=== PATIENT | female | born 1965 | race Caucasian/White ===

== ENCOUNTER 2016-07-11 11:39 | Emergency (ER) | payer OTHER ==
[~2016-07-11] VITALS: Ht 162.6 cm; Wt 86.0 kg
[~2016-07-11 11:39] MED LIST: FERR-89 PO; SIMV-261 PO; VITAD1000 PO
[2016-07-11] MEDS ORDERED: HYDROCODONE/ACETAMINOPHEN 10-325 MG TABLET PO ONE (12:30)
[2016-07-11] MEDS ORDERED: KETOROLAC TROMETHAMINE 60 MG/2 ML VIAL IM ONE (13:30)
[2016-07-11] MEDS ORDERED: CYCLOBENZAPRINE HCL 10 MG TABLET PO ONE (13:30)
[2016-07-11 16:06] VITALS: BP 147/82
== END 2016-07-11 16:08 | disposition home or self-care (01) ==
LOC: EMS 11:40
DX: S39.012A Strain of muscle, fascia and tendon of lower back, initial encounter (principal); X50.0XXA Overexertion from strenuous movement or load, initial encounter; Y93.89 Activity, other specified; Y92.89 Other specified places as the place of occurrence of the external cause; Y99.8 Other external cause status
CPT/HCPCS: 72100; 96372; 99284; J1885

== ENCOUNTER 2018-08-15 21:30 | Emergency (ER) | payer OTHER ==
[~2018-08-15] VITALS: Ht 162.6 cm; Wt 93.6 kg
[~2018-08-15 21:30] MED LIST changes: -SIMV-261 PO; -VITAD1000 PO
[2018-08-15] MEDS ORDERED: CALC-1202 PO (21:42)
[2018-08-15] MEDS ORDERED: GABA-529 PO (21:42)
[2018-08-15] MEDS ORDERED: IBUP-1506 PO (21:42)
[2018-08-15] MEDS ORDERED: PANT40TA25 PO (21:42)
[2018-08-15] MEDS ORDERED: MAG-55 PO (21:42)
[2018-08-15] MEDS ORDERED: METF-960 PO (21:42)
[2018-08-15 21:45] LABS: GLUCOSE,POINT OF CARE 121 MG/DL (70-110)
[2018-08-15 22:21] LABS: BASOPHILS % (AUTO) 0.5 % (0.0-2.0); EOSINOPHILS % (AUTO) 3.1 % (1.0-6.0); HEMATOCRIT 36.9 % (36-46); LYMPHOCYTES # (AUTO) 1.9 K/uL (1.0-4.8); LYMPHOCYTES % (AUTO) 50.4 % (22.0-44.0); MEAN CORPUSCULAR HEMOGLOBIN 30.9 pg (26.0-34.0); MEAN CORPUSCULAR HGB CONC 35.3 G/dL (31.0-37.0); MEAN CORPUSCULAR VOLUME 88 fL (80-100); MONOCYTES # (AUTO) 0.5 K/uL (0.1-1.0); MONOCYTES % (AUTO) 14.3 % (2.0-9.0); NEUTROPHILS # (AUTO) 1.2 K/uL (1.8-7.7); NEUTROPHILS % (AUTO) 31.7 % (40.0-70.0); PLATELET COUNT (AUTO) 186 K/uL (150-450); RED BLOOD CELL COUNT(AUTO) 4.21 MIL/uL (4.00-5.20); RED CELL DISTRIBUTION WIDTH 12.7 % (11.5-14.5)
[2018-08-15 22:22] LABS: APPEARANCE,URINE CLEAR (CLEAR); BILIRUBIN,URINE NEGATIVE (NEGATIVE); GLUCOSE, URINE (UA) NEGATIVE (NEGATIVE); KETONES,URINE NEGATIVE (NEGATIVE); LEUKOCYTE ESTERASE ,URINE NEGATIVE (NEGATIVE); NITRATE,URINE NEGATIVE (NEGATIVE); OCCULT BLOOD,URINE NEGATIVE (NEGATIVE); PROTEIN,URINE NEGATIVE (NEGATIVE); UROBILINOGEN,URINE 0.2 mg/dL (<=1.0)
[2018-08-15] MEDS ORDERED: ONDANSETRON HCL 4 MG/2 ML VIAL IVP ONE (22:30)
[2018-08-15] MEDS ORDERED: PB/HYOSCY/ATR/SCOP/LIDO/MAALOX 55 ML BOTTLE PO ONE (22:30)
[2018-08-15] MEDS ORDERED: MORPHINE SULFATE 4 MG/ML SYRINGE IVP ONE (22:30)
[2018-08-15] MEDS ORDERED: SODIUM CHLORIDE 0.9% 1,000 ML IV ONE (22:30)
[2018-08-15 22:32] LABS: BACTERIA,URINE Rare /HPF (None Seen); RBC,URINE 0-2 /HPF (0-2); SQUAMOUS EPITHELIAL CELL,UR Few /LPF (None Seen)
[2018-08-15 22:36] LABS: ANION GAP 9 mmol/L (8-16); CALCIUM, TOTAL 9.5 mg/dL (8.8-10.5); CARBON DIOXIDE 26 mmol/L (22-29); CHLORIDE 103 mmol/L (98-107); CREATININE 0.89 mg/dL (0.60-1.30); GLOMERULAR FILTR. RATE CALC > 60 mL/min (>60); GLUCOSE,RANDOM 127 mg/dL (70-110); POTASSIUM 3.9 mmol/L (3.5-5.1); SODIUM SERUM 138 mmol/L (136-145); UREA NITROGEN, BLOOD 15 mg/dL (7-18)
[2018-08-15 22:41] LABS: ALANINE AMINOTRANSFERASE 35 U/L (12-78); ALKALINE PHOSPHATASE 119 U/L (46-116); ASPARTATE AMINOTRANSFERASE 20 U/L (15-37); BILIRUBIN,TOTAL 0.9 mg/dL (0.1-1.0); LIPASE 133 U/L (73-393); PROTHROMBIN TIME 10.2 SEC (9.4-11.6); TOTAL PROTEIN, SERUM 7.6 g/dL (6.4-8.2)
[2018-08-15] MEDS ORDERED: IOVERSOL 350 MG/ML 100 ML VIAL ONE (23:27)
[2018-08-15] MEDS ORDERED: SODIUM CHLORIDE 0.9% 100 ML ONE (23:28)
[2018-08-16 01:10] VITALS: BP 115/75
== END 2018-08-16 01:44 | disposition home or self-care (01) ==
LOC: EMS 21:31
DX: R10.13 Epigastric pain (principal); R10.11 Right upper quadrant pain; Z90.49 Acquired absence of other specified parts of digestive tract; Z79.84 Long term (current) use of oral hypoglycemic drugs
CPT/HCPCS: 36415; 74177; 80053; 81001; 82962; 83690; 84703; 85025; 85610; 96374; 96375; 99284; J2270; J2405; J7030; J7050; Q9967

== ENCOUNTER 2022-08-15 18:09 | Emergency (ER) | payer OTHER ==
[~2022-08-15] VITALS: Ht 165.1 cm; Wt 91.0 kg
[~2022-08-15 18:09] MED LIST changes: +CALC-1219 PO; -FERR-89 PO; +GABA-1216 PO; +IBUP-1506 PO; +MAG-55 PO; +METF-1211 PO; +PANT-31 PO
[2022-08-15] MEDS ORDERED: SEMA3TAB4 PO (18:28)
[2022-08-15] MEDS ORDERED: METF-1211 PO (18:28)
[2022-08-15] MEDS ORDERED: ASPI-1444 PO (18:28)
[2022-08-15] MEDS ORDERED: EZET10TA57 PO (18:28)
[2022-08-15] MEDS ORDERED: CHOL500013 PO (18:28)
[2022-08-15] MEDS ORDERED: ATOR40TA28 PO (18:28)
[2022-08-15] MEDS ORDERED: ERTU5TAB PO (18:28)
[2022-08-15] MEDS ORDERED: LOSA-382 PO (18:28)
[2022-08-15 18:51] LABS: BASOPHILS % (AUTO) 0.5 % (0.0-2.0); EOSINOPHILS % (AUTO) 2.4 % (1.0-6.0); HEMATOCRIT 38.2 % (36-46); HEMOGLOBIN 12.9 g/dL (12.0-16.0); LYMPHOCYTES # (AUTO) 2.3 K/uL (1.0-4.8); LYMPHOCYTES % (AUTO) 43.1 % (22.0-44.0); MEAN CORPUSCULAR HEMOGLOBIN 30.6 pg (26.0-34.0); MEAN CORPUSCULAR HGB CONC 33.8 G/dL (31.0-37.0); MEAN CORPUSCULAR VOLUME 91 fL (80-100); MONOCYTES # (AUTO) 0.4 K/uL (0.1-1.0); MONOCYTES % (AUTO) 8.3 % (2.0-9.0); NEUTROPHILS # (AUTO) 2.4 K/uL (1.8-7.7); NEUTROPHILS % (AUTO) 45.7 % (40.0-70.0); PLATELET COUNT (AUTO) 208 K/uL (150-450); RED CELL DISTRIBUTION WIDTH 13.2 % (11.5-14.5)
[2022-08-15 18:58] LABS: ANION GAP 8 mmol/L (8-16); CALCIUM, TOTAL 9.2 mg/dL (8.8-10.5); CARBON DIOXIDE 25 mmol/L (22-29); CHLORIDE 104 mmol/L (98-107); CREATININE 0.82 mg/dL (0.60-1.30); GLOMERULAR FILTR. RATE CALC > 60 mL/min (>60); GLUCOSE,RANDOM 174 mg/dL (70-110); POTASSIUM 4.4 mmol/L (3.5-5.1); SODIUM SERUM 137 mmol/L (136-145); UREA NITROGEN, BLOOD 16 mg/dL (7-18)
[2022-08-15] MEDS ORDERED: KETOROLAC TROMETHAMINE 60 MG/2 ML VIAL IM ONE (19:00)
[2022-08-15 19:04] LABS: ALANINE AMINOTRANSFERASE 24 U/L (12-78); ALBUMIN 4.1 g/dL (3.4-5.0); ALKALINE PHOSPHATASE 131 U/L (46-116); ASPARTATE AMINOTRANSFERASE 16 U/L (15-37); BILIRUBIN,TOTAL 1.1 mg/dL (0.1-1.0); TOTAL PROTEIN, SERUM 7.3 g/dL (6.4-8.2)
[2022-08-15 19:25] LABS: APPEARANCE,URINE CLEAR (CLEAR); BILIRUBIN,URINE NEGATIVE (NEGATIVE); GLUCOSE, URINE (UA) >=1000 mg/dL (NEGATIVE); KETONES,URINE NEGATIVE (NEGATIVE); LEUKOCYTE ESTERASE ,URINE NEGATIVE (NEGATIVE); NITRATE,URINE NEGATIVE (NEGATIVE); OCCULT BLOOD,URINE NEGATIVE (NEGATIVE); PH,URINE 5.5 (5.0-8.0); PROTEIN,URINE NEGATIVE (NEGATIVE); SPECIFIC GRAVITIY, URINE 1.032 (1.003-1.030); UROBILINOGEN,URINE <=1.0 mg/dL (<=1.0)
[2022-08-15 19:43] LABS: BACTERIA,URINE Few /HPF (None Seen); RBC,URINE 0-2 /HPF (0-2)
[2022-08-15 19:44] LABS: SQUAMOUS EPITHELIAL CELL,UR Few /LPF (None Seen)
[2022-08-15] MEDS ORDERED: IBUP-1492 PO (23:10)
[2022-08-15] MEDS ORDERED: CYCL-448 PO (23:10)
[2022-08-16 00:03] VITALS: BP 126/78
== END 2022-08-16 00:05 | disposition home or self-care (01) ==
LOC: EMS 18:11
DX: R10.11 Right upper quadrant pain (principal); M54.50 Low back pain, unspecified; E78.00 Pure hypercholesterolemia, unspecified; I10 Essential (primary) hypertension; Z90.49 Acquired absence of other specified parts of digestive tract; Z98.890 Other specified postprocedural states
CPT/HCPCS: 99285; 74176; 80053; 81001; 82962; 85025; 36415; 96372; J1885

== ENCOUNTER 2023-01-21 09:17 | Emergency (ER) | payer OTHER ==
[~2023-01-21] VITALS: Ht 162.6 cm; Wt 93.2 kg
[~2023-01-21 09:17] MED LIST changes: +ASPI-1444 PO; +ATOR40TA28 PO; -CALC-1219 PO; +CHOL500013 PO; +CYCL-448 PO; +ERTU5TAB PO; +EZET10TA57 PO; -GABA-1216 PO; +IBUP-1492 PO; -IBUP-1506 PO; +LOSA-382 PO; -MAG-55 PO; -PANT-31 PO; +SEMA3TAB4 PO
[2023-01-21 09:24] VITALS: BP 133/81; PULSE 84; RESP 16; TEMP 98.4
[2023-01-21] MEDS ORDERED: DIPH25TA51 PO (10:20)
== END 2023-01-21 10:30 | disposition home or self-care (01) ==
LOC: EMS 09:34
DX: L25.9 Unspecified contact dermatitis, unspecified cause (principal); E11.9 Type 2 diabetes mellitus without complications; E78.00 Pure hypercholesterolemia, unspecified; Z90.49 Acquired absence of other specified parts of digestive tract; Z98.890 Other specified postprocedural states
CPT/HCPCS: 99282; Z7502

== ENCOUNTER 2023-04-20 09:09 | Emergency (ER) | payer OTHER ==
[~2023-04-20] VITALS: Ht 165.1 cm; Wt 75.0 kg
[~2023-04-20 09:09] MED LIST changes: +DIPH25TA51 PO
[2023-04-20 09:13] VITALS: BP 157/89; PULSE 94; RESP 18; TEMP 98.3
[2023-04-20 10:30] LABS: INFLUENZA A-RTPCR,COMBO POSITIVE FOR FLU A (NEGATIVE); INFLUENZA B-RTPCR,COMBO NEGATIVE FOR FLU B (NEGATIVE); RESPIRATORY SYNCYTIAL VRS-PCR NEGATIVE (NEGATIVE); SARS COVID19 RTPCR, COMBO NEGATIVE (NEGATIVE)
== END 2023-04-20 11:35 | disposition home or self-care (01) ==
LOC: EMS 09:09
DX: J11.1 Influenza due to unidentified influenza virus with other respiratory manifestations (principal); E11.9 Type 2 diabetes mellitus without complications; E78.00 Pure hypercholesterolemia, unspecified; Z90.49 Acquired absence of other specified parts of digestive tract; Z98.890 Other specified postprocedural states; Z20.822 Contact with and (suspected) exposure to COVID-19
CPT/HCPCS: 99283; 0241U